=== PATIENT | female | born 1960 | race Caucasian/White ===

== ENCOUNTER → 2020-03-10 | Outpatient (CLI) | payer OTHER ==
[2017-04-21 10:15] VITALS: BP 206/121
[~2020-03-10] MED LIST: ALBUTEROL; AMLO-186 PO; AMLO-187 PO; ARIP5TAB13 PO; ATEN1TAB4 PO; ATOR40TA59 PO; BUPR150T21 PO; CARV12.511 PO; CITA10TA4 PO; CITA20TA6 PO; CLON0.1T PO; CLON0.3T TD; CLONAZEPAM1 MG PO; CLOP75TA PO; CLOP75TA57 PO; DOXE50CA PO; ESCITALOPRAM OX20 MG PO; GABA-585 PO; GABA800T5 PO; GLIM1TAB7 PO; HYDR-3164 PO; HYDR12.58 PO; IBUP-1060 PO; LISI1TAB20 PO; LOVA20TA2 PO; METO-269 PO; OXYC5CAP PO; PANT20TA2 PO; SULF1TAB24 PO; TEMA7.5C2 PO; TIZA4TAB2 PO; TRAM100C3 PO
--- NOTE | 2020-03-10 18:51 | RAD ---
PROCEDURE: XR THORACIC SPINE 3VIEWS, XR LUMBAR SPINE 2-3V STUDY DATE: 03/10/2020 CLINICAL INDICATION / HISTORY: Reason: ACUTE BILATERAL LOW BACK PAIN WITHOUT SCIATICA. / Spl. Instruc tions: / History: . TECHNIQUE: AP lateral and coned-down lateral views of the lumbar spine were obtained COMPARISON: None FINDINGS: Five lumbar segments are identified. There is very subtle rightward convexity scoliotic cur vature of the lumbar spine apex at L2-L3. Otherwise the lumbar vertebral bodies are normal in height and alignment. Disc height is maintained. Pedicles are intact. IMPRESSION: No fracture seen. PROCEDURE: XR THORACIC SPINE 3VIEWS, XR LUMBAR SPINE 2-3V STUDY DATE: 03/10/2020 CLINICAL INDICATION / HISTORY: Reason: ACUTE BILATERAL LOW BACK PAIN WITHOUT SCIATICA. / Spl. Instruc tions: / History: . TECHNIQUE: Thoracic spine was examined in the AP lateral and swimmers projections. COMPARISON: L-spine x-rays same day FINDINGS: The osseous structures are demineralized. There is very subtle leftward convexity scoliotic curvature in the upper thoracic spine at approximately T4-T5.. There is a normal thoracic kyphosis w ith otherwise normal alignment of the thoracic vertebral bodies. There is preservation of the vertebr al body heights as well as the intervertebral disk space heights throughout the thoracic spine. No ev idence of acute fracture or subluxation is identified. 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 No acute or aggressive appearing osseous lesions are identified. More detailed assessment by CT or MRI could be pursued if warranted. Electronically signed by: Bernardo Ryan MD (03/10/2020 6:49 PM) [id number]
== END ==
LOC: RAD 11:37 → MERGE 11:37
PROVIDERS: ATTEND Family Medicine
DX: M43.8X4 Other specified deforming dorsopathies, thoracic region (principal); M40.294 Other kyphosis, thoracic region; M54.5 Low back pain
CPT/HCPCS: 72072; 72100

== ENCOUNTER → 2020-04-29 | Day surgery (SDC) | payer OTHER ==
[~2020-04-29] MED LIST changes: -ALBUTEROL; -ARIP5TAB13 PO; -CARV12.511 PO; -CLON0.1T PO; -ESCITALOPRAM OX20 MG PO; -GABA-585 PO; -HYDR-3164 PO; -HYDR12.58 PO; -IBUP-1060 PO; +IV RINGERS,LACTATED 1000ML 1,000 ML IV SCH; +PROPOFOL 10 MG/ML (20ML) VIAL. IV ONE; -SULF1TAB24 PO
[2020-04-29 10:03] VITALS: BP 167/83
--- NOTE | 2020-04-29 10:11 | CONS ---
DATE OF CONSULTATION: 04/29/2020 GI CONSULTATION REFERRING PHYSICIAN: Koby Pulido MD REASON FOR CONSULTATION: Colonoscopy with history of a carcinoid tumor and history of colonic polyps. HISTORY OF PRESENT ILLNESS: A 59-year-old female whose past medical history is significant for CVAs, hyperlipidemia, hypertension, diabetes, who is status post appendectomy, tubal ligation, and colon resection for carcinoid tumor, seen for interval colonoscopy. Last colonoscopy done approximately 10 years ago, which did reveal polyps; had intermittent bleeding since. No change in bowel habits with diarrhea or constipation. Weight and appetite are stable. She is otherwise without additional complaints. Her family history is unrevealing. PAST MEDICAL HISTORY: Hypertension, hyperlipidemia, history of CVA, history of diabetes, history of GERD. ALLERGIES: LATEX. MEDICATIONS: Include amlodipine, atenolol, chlorthalidone, atorvastatin, citalopram, clonidine, Plavix, doxepin, gabapentin, glimepiride, pantoprazole, tizanidine and tramadol. SOCIAL HISTORY: She is an ex-smoker, nondrinker. FAMILY HISTORY: Noncontributory. PAST SURGICAL HISTORY: Status post appendectomy, carcinoid resection, tubal ligation. REVIEW OF SYSTEMS: HEENT: There is no decrease in her visual acuity issues. CARDIAC: History of hypertension. NEUROLOGIC: History of CVA. ENDOCRINE: History of hyperlipidemia and diabetes. MUSCULOSKELETAL: History of osteoarthrosis. GASTROINTESTINAL: See history of present illness. HEMATOLOGIC: No bleeding, bruising, coagulopathy. DERMATOLOGIC: No skin rashes or pruritus. MUSCULOSKELETAL: History of osteoarthrosis. PHYSICAL EXAMINATION: GENERAL: Reveals a well-nourished, well-developed female. VITAL SIGNS: Temp is 97.4, pulse 69, respiratory rate is 20. HEENT: Normocephalic, atraumatic head. Pupils and extraocular movements are not tested. Sclerae anicteric. NECK: Supple. LUNGS: Clear. CARDIOVASCULAR: Reveals an S1, S2 without S3, S4 or appreciable murmur. ABDOMEN: With a soft abdomen, normal bowel sounds, without appreciable hepatosplenomegaly. Multiple surgical incisions. EXTREMITIES: No cyanosis, clubbing or edema. IMPRESSION: Carcinoid tumor with history of colonic polyps. Surveillance exam is recommended at this time. Risks and benefits of procedure, including risk of hemorrhage and perforation were discussed. The patient is willing to proceed. I would like to thank Dr. Koby Pulido for allowing us to consult and participate in the patient's care. UTCKER IVAN MD DR: TIP/ti JOB#: [id number] / [id number] KOBY Brown MD
== END | disposition home or self-care (01) ==
LOC: SURG 08:04
PROVIDERS: ATTEND Internal Medicine Gastroenterology
DX: Z12.11 Encounter for screening for malignant neoplasm of colon (principal); K64.0 First degree hemorrhoids; K21.9 Gastro-esophageal reflux disease without esophagitis; I10 Essential (primary) hypertension; E11.9 Type 2 diabetes mellitus without complications; E78.00 Pure hypercholesterolemia, unspecified; M19.90 Unspecified osteoarthritis, unspecified site; F41.9 Anxiety disorder, unspecified; F32.9 Major depressive disorder, single episode, unspecified; F17.210 Nicotine dependence, cigarettes, uncomplicated; Z79.899 Other long term (current) drug therapy; Z86.010 Personal history of colon polyps; Z98.890 Other specified postprocedural states; Z90.710 Acquired absence of both cervix and uterus; Z72.89 Other problems related to lifestyle; Z91.040 Latex allergy status
CPT/HCPCS: 45378; J2704

== ENCOUNTER 2020-11-12 11:53 | Emergency (ER) | payer OTHER ==
[~2020-11-12] VITALS: Ht 160 cm; Wt 80.4 kg
[~2020-11-12 11:53] MED LIST changes: +ALBUTEROL; +ARIP5TAB13 PO; +CARV12.511 PO; +CLON0.1T PO; +ESCITALOPRAM OX20 MG PO; +GABA-585 PO; +HYDR-3164 PO; +HYDR12.58 PO; +IBUP-1060 PO; -IV RINGERS,LACTATED 1000ML 1,000 ML IV SCH; -PROPOFOL 10 MG/ML (20ML) VIAL. IV ONE; +SULF1TAB24 PO
[2020-11-12] MEDS ORDERED: IV NORMAL SALINE 1000ML BAG 1,000 ML IV ONE (12:15)
--- NOTE | 2020-11-12 12:15 | PHYS DOC ---
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,BREAST CA,FALLS Past Surgical History: Appendectomy, Colectomy, Other Additional Past Surgical Histo: right foot surgery, cyst removal Smoking Status: Current Every Day Smoker Alcohol Use: None Drug Use: Marijuana General Adult EDM: Chief Complaint: WEAKNESS/GENERALIZED HPI: HPI: Patient is a 60 year old female with a history of diabetes type 2, hypertension, bipolar, multiple strokes, right breast cancer with radiation treatment to the breast completed 3 weeks ago and lymph node removal from the right axilla who presents to the ED today complaining of dizziness that began this morning while doing physical therapy. Patient states symptoms were worse when she was up. Patient also reports nausea but no vomiting. She states she was given Zofran and IV fluids by EMS and she feels better. Review of Systems: Review of Systems: Constitutional: Denies fever or chills. [] Eyes: Denies change in visual acuity. [] HENT: Denies nasal congestion or sore throat. [] Respiratory: Denies cough or shortness of breath. [] Cardiovascular: Denies chest pain or edema. [] GI: Reports nausea. Denies abdominal pain,vomiting, bloody stools or diarrhea. [] : Denies dysuria. [] Musculoskeletal: Denies back pain or joint pain. [] Integument: Denies rash. [] Neurologic: Reports dizziness denies headache, focal weakness or sensory changes. [] Endocrine: Denies polyuria or polydipsia. [] Lymphatic: Denies swollen glands. [] Psychiatric: Denies depression or anxiety. [] Heart Score: C/O Chest Pain: N/A Risk Factors: Risk Factors: DM, Current or recent (<one month) smoker, HTN, HLP, family history of CAD, obesity. Risk Scores: Score 0 - 3: 2.5% MACE over next 6 weeks - Discharge Home Score 4 - 6: 20.3% MACE over next 6 weeks - Admit for Clinical Observation Score 7 - 10: 72.7% MACE over next 6 weeks - Early Invasive Strategies Current Medications: Current Medications Medications (Trade) Dose Ordered Sig/Mario Start Time Stop Time Status Last Admin Dose Admin Meclizine HCl (Antivert) 12.5 mg 1X ONCE 11/12/20 12:15 11/12/20 12:16 UNV Sodium Chloride 1,000 ml @ 1,000 mls/hr 1X ONCE 11/12/20 12:15 11/12/20 13:14 Allergies: Allergies: Allergies Coded Allergies Type Severity Reaction Last Updated Verified latex Allergy Intermediate 04/29/20 Yes Physical Exam: PE: Constitutional: Well developed, well nourished, no acute distress, non-toxic appearance. [] HENT: Normocephalic, atraumatic, bilateral external ears normal, oropharynx moist, no oral exudates, nose normal. [] Eyes: PERRLA, EOMI, conjunctiva normal, no discharge. [] Neck: Normal range of motion, no tenderness, supple, no stridor. [] Cardiovascular:Heart rate regular rhythm, no murmur [] Lungs & Thorax: Bilateral breath sounds clear to auscultation [] Abdomen: Bowel sounds normal, soft, no tenderness, no masses, no pulsatile masses. [] Skin: Warm, dry, no erythema, no rash. [] Back: No tenderness, no CVA tenderness. [] Extremities: No tenderness, no cyanosis, no clubbing, ROM intact, no edema. [] Neurologic: Alert and oriented X 3, normal motor function, normal sensory function, no focal deficits noted. Cranial nerves II through XII intact Psychologic: Affect normal, judgement normal, mood normal. [] EKG: EK interpreted by Dr. Rodriguez sinus rhythm heart rate 57 no STEMI [] Radiology/Procedures: Radiology/Procedures: []PROCEDURE: CT HEAD WO CONTRAST EXAM: Head CT without contrast. HISTORY: Dizziness. TECHNIQUE: Computed tomographic images of the head were obtained without contrast. *One or more of the following individualized dose reduction techniques were utilized for this examination: 1. Automated exposure control. 2. Adjustment of the mA and/or kV according to patient size. 3. Use of iterative reconstruction technique. COMPARISON: 06/30/2020. FINDINGS: There is no acute or subacute extra-axial or intraparenchymal hemorrhage. There is no mass effect or midline shift. There is no hydrocephalus. There are chronic lacunar infarct within the left basal ganglia and right thalamus. There may also be a small chronic infarct within the marifer. There are areas of decreased attenuation within the cerebral white matter due to chronic small vessel disease. There is cerebral volume loss. The visualized portions of the orbits, paranasal sinuses and mastoid air cells are unremarkable. No suspicious calvarial lesion is seen. IMPRESSION: 1. No acute intracranial finding. MRI is more sensitive for acute infarction. 2. Bilateral cerebral white matter changes, likely due to chronic small vessel disease. 3. Suspected chronic lacunar infarct within the left basal ganglia, right thalamus and possibly the marifer. Electronically signed by: Sapna Bah MD (11/12/2020 12:55 PM) [id number] DICTATED and SIGNED BY: SAPNA BAH MD DATE: 11/12/20 [id number] 0 PROCEDURE: PORTABLE CHEST 1V Single view of the chest. 11/12/2020 12:16 PM Indication: Reason: dizziness / Spl. Instructions: / History: Comparison: Chest radiograph April 16, 2015 Findings: There is no focal consolidation. There is no pleural effusion or pneumothorax. Heart size is top normal given portable technique.. No acute osseous abnormalities are seen. Calcified granuloma in the right upper lung is stable. Impression: No evidence of acute cardiopulmonary process. Electronically signed by: Moises Espinoza MD (11/12/2020 12:32 PM) [id number] DICTATED and SIGNED BY: MOISES ESPINOZA MD DATE: 11/12/20 [id number] 0 Course & Med Decision Making: Course & Med Decision Making Pertinent Labs and Imaging studies reviewed. (See chart for details) This is a 60-year-old female patient presenting to the ED today with dizziness and nausea, symptoms began this morning during physical therapy. She was in the ED stating she was feeling better. Vitals on arrival to the ED temperature 98.4, heart rate 58, respiration 18 on room air, O2 sats 94%, blood pressure 104/56. CT of the head is negative for any acute findings, chest x-ray is negative. CBC with no acute findings, CMP with creatinine of 1.4, normal BUN glucose of 299, Given IV fluids in the ED and regular insulin. UA positive for UTI. Started on cephalexin. Patient is currently up and ablating in the ED with a walker which is her baseline comfortably with no difficulties. She states she feels she is back to her baseline and would like to go home. She has a PCP. Instructed to follow-up in the course of this week. Instructed to push fluids. Provided return precautions. Dragon Disclaimer: John Disclaimer: This electronic medical record was generated, in whole or in part, using a voice recognition dictation system. Departure Departure Impression: Primary Impression: Hyperglycemia Additional Impressions: Dizziness Urinary tract infection Qualified Codes: N39.0 - Urinary tract infection, site not specified Disposition: HOME / SELF CARE / HOMELESS Condition: STABLE Referrals: YOLANDA PLATT MD (PCP) Follow-up in the course of this week or next week Patient Instructions: Dizziness, [id number], Hyperglycemia, Urinary Tract Infection Additional Instructions: You were evaluated in the emergency room for dizziness. You are noted to have urinary tract infection. We will send you antibiotics to your pharmacy. Take it as prescribed until completed. Your blood glucose is running high please ensure you are taking your diabetes medicines. Push fluids. Change positions slowly. Take meclizine as needed for dizziness. Follow-up with your doctor in the course of this week or next week. Come back to the ED at any point symptoms worsen Scripts Ondansetron (ONDANSETRON ODT) 4 Mg Tab.rapdis 1 TAB PO PRN Q6-8HRS, #16 TAB Prov: ALAN BLAIR [employer]ER[employer] REPRESENTATIVE 11/12/20 Cephalexin (CEPHALEXIN) 500 Mg Tablet 1 TAB PO BID, #14 TAB Prov: ALAN BLAIR [employer]ER[employer] REPRESENTATIVE 11/12/20 Meclizine Hcl (MECLIZINE HCL) 12.5 Mg Tablet 1 TAB PO TID, #30 TAB Prov: ALAN BLAIR APRN 11/12/20 ALAN BLAIR APRN Nov 12, 2020 12:15
[2020-11-12 12:24] LABS: BASO # 0.1 x10^3/uL (0.0-0.2); BASO % 1 % (0-3); EOS # 0.1 x10^3/uL (0.0-0.7); EOS % 1 % (0-3); HEMATOCRIT 37.7 % (36.0-47.0); LYMPH # 1.4 x10^3/uL (1.0-4.8); LYMPH % 24 % (24-48); MEAN CORPUSCULAR HEMOGLOBIN 30 pg (25-35); MEAN CORPUSCULAR HGB CONC 35 g/dL (31-37); MEAN CORPUSCULAR VOLUME 86 fL (79-100); MONO # 0.4 x10^3/uL (0.0-1.1); MONO % 7 % (0-9); NEUT # 3.9 x10^3/uL (1.8-7.7); NEUT % 68 % (31-73); PLATELET COUNT 227 x10^3/uL (140-400); RED BLOOD COUNT 4.39 x10^6/uL (3.50-5.40); RED CELL DISTRIBUTION WIDTH 13.6 % (11.5-14.5); WHITE BLOOD COUNT 5.7 x10^3/uL (4.0-11.0)
--- NOTE | 2020-11-12 12:34 | RAD ---
Single view of the chest. 11/12/2020 12:16 PM Indication: Reason: dizziness / Spl. Instructions: / History: Comparison: Chest radiograph April 16, 2015 Findings: There is no focal consolidation. There is no pleural effusion or pneumothorax. Heart size i s top normal given portable technique.. No acute osseous abnormalities are seen. Calcified granuloma in the right upper lung is stable. Impression: No evidence of acute cardiopulmonary process. Electronically signed by: Moises Hilton MD (11/12/2020 12:32 PM) [id number]
[2020-11-12 12:36] LABS: CALCIUM 9.2 mg/dL (8.5-10.1); CREATININE 1.4 mg/dL (0.6-1.0); GFR 38.4; POTASSIUM 3.8 mmol/L (3.5-5.1)
[2020-11-12 12:42] LABS: ALBUMIN 3.2 g/dL (3.4-5.0); ALBUMIN/GLOBULIN RATIO 0.9 (1.0-1.7); MAGNESIUM 2.1 mg/dL (1.8-2.4); TOTAL BILIRUBIN 0.3 mg/dL (0.2-1.0); TOTAL PROTEIN 6.8 g/dL (6.4-8.2)
[2020-11-12] MEDS ORDERED: MECLIZINE HCL 12.5 MG TABLET. PO ONE (12:45)
--- NOTE | 2020-11-12 12:57 | RAD ---
EXAM: Head CT without contrast. HISTORY: Dizziness. TECHNIQUE: Computed tomographic images of the head were obtained without contrast. *One or more of the following individualized dose reduction techniques were utilized for this examina tion: 1. Automated exposure control. 2. Adjustment of the mA and/or kV according to patient size. 3. Use of iterative reconstruction technique. COMPARISON: 06/30/2020. FINDINGS: There is no acute or subacute extra-axial or intraparenchymal hemorrhage. There is no mass effect or midline shift. There is no hydrocephalus. There are chronic lacunar infarct within the left basal ganglia and right thalamus. There may also be a small chronic infarct within the marifer. There are areas of decreased attenuation within the cerebra l white matter due to chronic small vessel disease. There is cerebral volume loss. The visualized portions of the orbits, paranasal sinuses and mastoid air cells are unremarkable. No s uspicious calvarial lesion is seen. IMPRESSION: 1. No acute intracranial finding. MRI is more sensitive for acute infarction. 2. Bilateral cerebral white matter changes, likely due to chronic small vessel disease. 3. Suspected chronic lacunar infarct within the left basal ganglia, right thalamus and possibly the p ons. Electronically signed by: Sapna Mckeon MD (11/12/2020 12:55 PM) [id number]
[2020-11-12 14:18] LABS: BILIRUBIN,URINE SMALL (NEG); CLARITY,URINE CLEAR; COLOR,URINE YELLOW; NITRITE,URINE POSITIVE (NEG); PROTEIN,URINE 30 mg/dL (NEG-TRACE); UROBILINOGEN,URINE 0.2 mg/dL (0.2 mg/dL)
[2020-11-12 14:24] LABS: AMPHETAMINE/METHAMPHETAMINE NEG (NEG); BARBITURATES NEG (NEG); BENZODIAZEPINES NEG (NEG); CANNABINOIDS NEG (NEG); COCAINE POS (NEG); METHADONE NEG (NEG); OPIATES NEG (NEG); PHENCYCLIDINE NEG (NEG)
[2020-11-12 14:25] VITALS: BP 108/57
[2020-11-12 14:25] LABS: HYALINE CASTS, URINE MANY /HPF
[2020-11-12 14:26] LABS: BACTERIA,URINE MANY /HPF (0-FEW); RBC,URINE 0 /HPF (0-2); WBC,URINE 20-40 /HPF (0-4)
[2020-11-12] MEDS ORDERED: CEPH500T PO (14:51)
[2020-11-12] MEDS ORDERED: ONDA4TAB12 PO (14:51)
[2020-11-12] MEDS ORDERED: MECL12.582 PO (14:51)
[2020-11-12] MEDS ORDERED: INSULIN REGULAR 100 UNIT/ML 3ML VIAL. IV ONE (15:00)
== END 2020-11-12 15:15 | disposition home or self-care (01) ==
LOC: ER 11:53
DX: N39.0 Urinary tract infection, site not specified (principal); E11.65 Type 2 diabetes mellitus with hyperglycemia; R42 Dizziness and giddiness; F31.9 Bipolar disorder, unspecified; I10 Essential (primary) hypertension; F17.200 Nicotine dependence, unspecified, uncomplicated; Z86.73 Personal history of transient ischemic attack (TIA), and cerebral infarction without residual deficits; Z90.49 Acquired absence of other specified parts of digestive tract; Z90.89 Acquired absence of other organs; Z91.040 Latex allergy status
CPT/HCPCS: 36415; 70450; 71045; 80053; 80307; 81001; 83735; 83880; 84443; 84484; 85025; 87077; 87086; 87186; 93005; 96361; 96374; 99285; J1815; J7030

== ENCOUNTER 2020-11-17 10:08 | Inpatient (IN) | payer OTHER ==
[~2020-11-17] VITALS: Ht 170.2 cm; Wt 77.6 kg
[~2020-11-17 10:08] MED LIST changes: +CEPH500T PO; +MECL12.582 PO; +ONDA4TAB12 PO
[2020-11-17] MEDS ORDERED: IV NORMAL SALINE 1000ML BAG 1,000 ML IV ONE (10:45)
[2020-11-17] MEDS ORDERED: MORPHINE SULFATE 4 MG/ML INJ. IVP ONE ×2 (10:45→13:30)
[2020-11-17] MEDS ORDERED: ONDANSETRON PF 4 MG/2 ML VIAL. IVP ONE (10:45)
[2020-11-17 11:28] LABS: BASO # 0.1 x10^3/uL (0.0-0.2); BASO % 1 % (0-3); EOS % 0 % (0-3); HEMATOCRIT 41.8 % (36.0-47.0); HEMOGLOBIN 14.5 g/dL (12.0-15.5); LYMPH # 1.4 x10^3/uL (1.0-4.8); LYMPH % 11 % (24-48); MEAN CORPUSCULAR HEMOGLOBIN 30 pg (25-35); MEAN CORPUSCULAR HGB CONC 35 g/dL (31-37); MEAN CORPUSCULAR VOLUME 85 fL (79-100); MONO # 0.7 x10^3/uL (0.0-1.1); MONO % 6 % (0-9); NEUT # 10.2 x10^3/uL (1.8-7.7); NEUT % 83 % (31-73); PLATELET COUNT 265 x10^3/uL (140-400); RED BLOOD COUNT 4.91 x10^6/uL (3.50-5.40); RED CELL DISTRIBUTION WIDTH 13.1 % (11.5-14.5); WHITE BLOOD COUNT 12.4 x10^3/uL (4.0-11.0)
[2020-11-17 11:30] LABS: BILIRUBIN,URINE SMALL (NEG); CLARITY,URINE CLEAR; COLOR,URINE AMBER; NITRITE,URINE NEGATIVE (NEG); PH,URINE 5.5 (<5.0-8.0); PROTEIN,URINE 100 mg/dL (NEG-TRACE)
[2020-11-17 11:37] LABS: CALCIUM 9.3 mg/dL (8.5-10.1); CREATININE 1.4 mg/dL (0.6-1.0); GFR 38.4; POTASSIUM 3.6 mmol/L (3.5-5.1)
--- NOTE | 2020-11-17 11:38 | PHYS DOC ---
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 Patient described the pain as sharp aching in nature, patient has history of kidney stones in the past, the pain is similar to her kidney stone attack previously. Patient denies any cough or fever, no chest pain, no shortness of air. Patient says she had kidney stones in the past, she had lithotripsy done. Patient also recently had breast surgery recently in July. Patient does have multiple abdominal surgery in the past due to carcinoid tumor, bowel obstruction. Review of Systems: Review of Systems: Constitutional: Denies fever or chills. [] Eyes: Denies change in visual acuity. [] HENT: Denies nasal congestion or sore throat. [] Respiratory: Denies cough or shortness of breath. [] Cardiovascular: Denies chest pain or edema. [] GI: Positive for left flank pain with nausea, no vomiting, no diarrhea. : Denies dysuria. [] Musculoskeletal: Denies back pain or joint pain. [] Integument: Denies rash. [] Neurologic: Denies headache, focal weakness or sensory changes. [] Endocrine: Denies polyuria or polydipsia. [] Lymphatic: Denies swollen glands. [] Psychiatric: Denies depression or anxiety. [] Heart Score: C/O Chest Pain: N/A Risk Factors: Risk Factors: DM, Current or recent (<one month) smoker, HTN, HLP, family history of CAD, obesity. Risk Scores: Score 0 - 3: 2.5% MACE over next 6 weeks - Discharge Home Score 4 - 6: 20.3% MACE over next 6 weeks - Admit for Clinical Observation Score 7 - 10: 72.7% MACE over next 6 weeks - Early Invasive Strategies Current Medications: Current Medications Medications (Trade) Dose Ordered Sig/Mario Start Time Stop Time Status Last Admin Dose Admin Morphine Sulfate (Morphine Sulfate) 4 mg 1X ONCE 11/17/20 10:45 11/17/20 10:46 DC 11/17/20 11:28 4 MG Ondansetron HCl (Zofran) 4 mg 1X ONCE 11/17/20 10:45 11/17/20 10:46 DC 11/17/20 11:27 4 MG Sodium Chloride 1,000 ml @ 1,000 mls/hr 1X ONCE 11/17/20 10:45 11/17/20 11:44 11/17/20 11:28 1,000 MLS/HR Allergies: Allergies: Allergies Coded Allergies Type Severity Reaction Last Updated Verified latex Allergy Intermediate 04/29/20 Yes Physical Exam: PE: Constitutional: Well developed, well nourished, no acute distress, non-toxic appearance. [] HENT: Normocephalic, atraumatic, bilateral external ears normal, oropharynx mois t, no oral exudates, nose normal. [] Eyes: PERRLA, EOMI, conjunctiva normal, no discharge. [] Neck: Normal range of motion, no tenderness, supple, no stridor. [] Cardiovascular:Heart rate regular rhythm, no murmur [] Lungs & Thorax: Bilateral breath sounds clear to auscultation [] Abdomen: Hypoactive bowel sounds, mildly distended ,left CVA tenderness to palpation. Skin: Warm, dry, no erythema, no rash. [] Back: No tenderness, left CVA tenderness to palpation Extremities: No tenderness, no cyanosis, no clubbing, ROM intact, no edema. [] Neurologic: Alert and oriented X 3, normal motor function, normal sensory function, no focal deficits noted. [] Psychologic: Affect normal, judgement normal, mood normal. [] Current Patient Data: Labs: Laboratory Tests Test 11/17/20 11:10 White Blood Count 12.4 x10^3/uL (4.0-11.0) H Red Blood Count 4.91 x10^6/uL (3.50-5.40) Hemoglobin 14.5 g/dL (12.0-15.5) Hematocrit 41.8 % (36.0-47.0) Mean Corpuscular Volume 85 fL (79-100) Mean Corpuscular Hemoglobin 30 pg (25-35) Mean Corpuscular Hemoglobin Concent 35 g/dL (31-37) Red Cell Distribution Width 13.1 % (11.5-14.5) Platelet Count 265 x10^3/uL (140-400) Neutrophils (%) (Auto) 83 % (31-73) H Lymphocytes (%) (Auto) 11 % (24-48) L Monocytes (%) (Auto) 6 % (0-9) Eosinophils (%) (Auto) 0 % (0-3) Basophils (%) (Auto) 1 % (0-3) Neutrophils # (Auto) 10.2 x10^3/uL (1.8-7.7) H Lymphocytes # (Auto) 1.4 x10^3/uL (1.0-4.8) Monocytes # (Auto) 0.7 x10^3/uL (0.0-1.1) Eosinophils # (Auto) 0.0 x10^3/uL (0.0-0.7) Basophils # (Auto) 0.1 x10^3/uL (0.0-0.2) Laboratory Tests 11/17/20 11:10 Vital Signs: Vital Signs Date Time Temp Pulse Resp B/P (MAP) Pulse Ox O2 Delivery O2 Flow Rate FiO2 11/17/20 11:28 16 94 Room Air 11/17/20 10:34 98.9 93 195/108 (137) 98.9 EKG: EKG: [] Radiology/Procedures: Radiology/Procedures: [][facility] [address] [place] [address] IMAGING REPORT Signed PATIENT: MONTSERRAT RICKETTS ACCOUNT: [id number] : 1960 LOCATION: ER AGE: 60 SEX: F EXAM STATUS: REG ER ORD. PHYSICIAN: JOHN PAUL DUBON DO REASON: left flank pain PROCEDURE: CT ABDOMEN PELVIS WO CONTRAST CT ABDOMEN+PELVIS WO History: Left flank pain. Comparison: CT abdomen and pelvis 06/30/2020. Technique: Noncontrast CT of the abdomen and pelvis. Findings: Dependent changes in the lung bases. Pleural or pericardial effusion. Hypodensity of the liver compatible steatosis. Left hepatic lobe 2.6 cm cyst. Punctate calcification at the gallbladder wall similar to comparison may repres ent adherent mural stone versus calcification in the adjacent hepatic gallbladder fossa. The pancreas is unremarkable. Innumerable calcifications in the spleen consistent with granulomatous disease. Redemonstrated left adrenal adenoma measuring approximately 1.7 cm. Left renal 1.3 cm cyst. Numerous nonobstructing right renal calculi. A few tiny nonobstructing left renal calculi. Decompressed bladder is unremarkable. Uterus and adnexa are within normal limits. The stomach is unremarkable. There is progressive dilation of left mid abdominal small bowel loops with some fecalization of the content and a transition point in the midline pelvis where there is a linear wire shaped metallic foreign body, approximately 2.8 cm in length within the small bowel loops (axial image 170- 174). Distally, the small bowel is decompressed. There is a small bowel anastomosis in the right midabdomen. Appendix is nonvisualized. There is sigmoid diverticulosis without focal wall thickening. Small pelvic free fluid. No free air. Atherosclerotic calcification of the aorta and iliac arteries without aneurysm. No abdominopelvic adenopathy. There is a fat-containing supraumbilical midline ventral hernia. No acute osseous abnormality. Impression: 1. Linear wire shaped metallic foreign body in the small bowel in the midline lower pelvis causing obstruction and fecalization of the proximal small bowel lo ops. Small pelvic free fluid. No free air or abscess identified. Recommend surgery consultation. 2. Hepatic steatosis. 3. Nonobstructing bilateral nephrolithiasis. 4. Sigmoid diverticulosis without evidence for diverticulitis. Findings discussed with Dr. Dubon at 11/17/2020 12:58 PM. FOR INTERNAL CODING PURPOSES RESULT CODE: (C) ------ Exposure: One or more of the following individualized dose reduction techniques were utilized for this examination: 1. Automated exposure control 2. Adjustment of the mA and/or kV according to patient size 3. Use of iterative reconstruction technique. Electronically signed by: Joey Huston MD (11/17/2020 1:00 PM) [id number] DICTATED and SIGNED BY: JOEY HUSTON MD DATE: 11/17/20 [id number] 0 Course & Med Decision Making: Course & Med Decision Making Pertinent Labs and Imaging studies reviewed. (See chart for details) Patient is a 60-year-old female who present to ER due to abdominal pain with nausea vomiting since yesterday. CT scan abdomen pelvis evidence of small bowel obstruction, discussed with her surgeon on-call Dr. Trey Langford who will see patient as a consultation in the hospital., He recommended to admit the patient to family physician. John Disclaimer: John Disclaimer: This electronic medical record was generated, in whole or in part, using a voice recognition dictation system. Departure Departure Impression: Primary Impression: Small bowel obstruction Additional Impression: Abdominal pain Disposition: ADMITTED INPATIENT Admitting Physician: Og Leavitt Condition: STABLE Referrals: KOBY CORRAL MD (PCP) JOHN PAUL DUBON DO Nov 17, 2020 11:38
[2020-11-17 11:43] LABS: ALBUMIN 3.5 g/dL (3.4-5.0); ALBUMIN/GLOBULIN RATIO 0.8 (1.0-1.7); TOTAL BILIRUBIN 0.5 mg/dL (0.2-1.0); TOTAL PROTEIN 8.1 g/dL (6.4-8.2)
[2020-11-17] MEDS ORDERED: KETOROLAC 30 MG/ML VIAL. IVP ONE (12:00)
[2020-11-17 12:08] LABS: BACTERIA,URINE 0 /HPF (0-FEW); HYALINE CASTS, URINE MANY /HPF; RBC,URINE OCC /HPF (0-2); WBC,URINE RARE /HPF (0-4)
--- NOTE | 2020-11-17 13:02 | RAD ---
CT ABDOMEN+PELVIS WO History: Left flank pain. Comparison: CT abdomen and pelvis 06/30/2020. Technique: Noncontrast CT of the abdomen and pelvis. Findings: Dependent changes in the lung bases. Pleural or pericardial effusion. Hypodensity of the liver compatible steatosis. Left hepatic lobe 2.6 cm cyst. Punctate calcification at the gallbladder wall similar to comparison may represent adherent mural stone versus calcification in the adjacent hepatic gallbladder fossa. The pancreas is unremarkable. Innumerable calcifications in the spleen consistent with granulomatous disease. Redemonstrated left adrenal adenoma measuring ap proximately 1.7 cm. Left renal 1.3 cm cyst. Numerous nonobstructing right renal calculi. A few tiny n onobstructing left renal calculi. Decompressed bladder is unremarkable. Uterus and adnexa are within normal limits. The stomach is unremarkable. There is progressive dilation of left mid abdominal small bowel loops wi th some fecalization of the content and a transition point in the midline pelvis where there is a wilfrid ear wire shaped metallic foreign body, approximately 2.8 cm in length within the small bowel loops (a xial image [id number]). Distally, the small bowel is decompressed. There is a small bowel anastomosis in the right midabdomen. Appendix is nonvisualized. There is sigmoid diverticulosis without focal wall thickening. Small pelvic free fluid. No free air. Atherosclerotic calcification of the aorta and iliac arteries w ithout aneurysm. No abdominopelvic adenopathy. There is a fat-containing supraumbilical midline ventr al hernia. No acute osseous abnormality. Impression: 1. Linear wire shaped metallic foreign body in the small bowel in the midline lower pelvis causing o bstruction and fecalization of the proximal small bowel loops. Small pelvic free fluid. No free air o r abscess identified. Recommend surgery consultation. 2. Hepatic steatosis. 3. Nonobstructing bilateral nephrolithiasis. 4. Sigmoid diverticulosis without evidence for diverticulitis. Findings discussed with Dr. Rodriguez at 11/17/2020 12:58 PM. FOR INTERNAL CODING PURPOSES RESULT CODE: (C) ------ Exposure: One or more of the following individualized dose reduction techniques were utilized for thi s examination: 1. Automated exposure control 2. Adjustment of the mA and/or kV according to patient size 3. Use of iterative reconstruction technique. Electronically signed by: Joey Nur MD (11/17/2020 1:00 PM) [id number]
[2020-11-17] MEDS: ONDANSETRON PF 4 MG/2 ML VIAL. IVP PRN ×2 (14:41→22:46)
[2020-11-17] MEDS: MORPHINE SULFATE 4 MG/ML INJ. IVP PRN ×2 (14:41→21:19)
--- NOTE | 2020-11-17 14:41 | PDOC2 ---
SHAHANA MAGDALENO ORTHOPEDIC SHOE FITTER 11/17/20 1441: CONSULT Date of Consult Date of Consult DATE: 11/17/20 TIME: 14:36 Reason for Consult Reason for Consult: SBO Referring Physician Referring Physician: ER Identification/Chief Complaint Chief Complaint abdominal pain Source Source: Chart review, Patient History of Present Illness Reason for Visit: Seen on 11/12 for dizziness. Noted to have UTI. Then started having abdominal pain, went to [facility] ER, nothing done per pt. Last night started having worsening abdominal pain, vomiting. Last stool yesterday. No diarrhea. Significant surgical hx including appendectomy/bowel resection for carcinoid tumor. SBO and required OR for adhesions, unsure if additional resection. She is on plavix for stroke hx. Noted drug screen from 11/12 + for cocaine Past Medical History Cardiovascular: HTN, Hyperlipidemia CENTRAL NERVOUS SYSTEM: CVA Psych: Anxiety Musculoskeletal: Osteoarthritis Endocrine: Other Past Surgical History Past Surgical History: Hysterectomy Family History Family History: Family History Unknown Social History ALCOHOL: occassional Drugs: Cocaine, Marijuana Lives: with Family Current Problem List Problem List Problems Medical Problems: (1) Abdominal pain Status: Acute (2) Small bowel obstruction Status: Acute Current Medications Current Medications Current Medications Ondansetron HCl (Zofran) 4 mg 1X ONCE IVP Last administered on 11/17/20at 11:27; Start 11/17/20 at 10:45; Stop 11/17/20 at 10:46; Status DC Sodium Chloride 1,000 ml @ 1,000 mls/hr 1X ONCE IV Last administered on 11/17/20at 11:28; Start 11/17/20 at 10:45; Stop 11/17/20 at 11:44; Status DC Morphine Sulfate (Morphine Sulfate) 4 mg 1X ONCE IVP Last administered on 11/17/20at 11:28; Start 11/17/20 at 10:45; Stop 11/17/20 at 10:46; Status DC Ketorolac Tromethamine (Toradol 30mg Vial) 30 mg 1X ONCE IVP Last administered on 11/17/20at 12:02; Start 11/17/20 at 12:00; Stop 11/17/20 at 12:01; Status DC Morphine Sulfate (Morphine Sulfate) 4 mg 1X ONCE IVP Last administered on 11/17/20at 13:45; Start 11/17/20 at 13:30; Stop 11/17/20 at 13:33; Status DC Ondansetron HCl (Zofran) 4 mg PRN Q8HRS PRN IVP NAUSEA/VOMITING; Start 11/17/20 at 14:15; Stop 11/18/20 at 14:14 Morphine Sulfate (Morphine Sulfate) 4 mg PRN Q2HR PRN IVP PAIN; Start 11/17/20 at 14:15; Stop 11/18/20 at 14:14 Sodium Chloride 1,000 ml @ 75 mls/hr [id number] IV ; Start 11/17/20 at 14:30; Stop 11/18/20 at 14:29 Metoclopramide HCl (Reglan Vial) 10 mg 1X ONCE IVP ; Start 11/17/20 at 14:30; Stop 11/17/20 at 14:31; Status UNV Active Scripts Active Ondansetron Odt (Ondansetron) 4 Mg Tab.rapdis 1 Tab PO PRN Q6-8HRS Cephalexin 500 Mg Tablet 1 Tab PO BID Meclizine Hcl 12.5 Mg Tablet 1 Tab PO TID Ibuprofen 800 Mg Tablet 800 Mg PO PRN Q6HRS PRN Bactrim Ds Tablet (Sulfamethoxazole/Trimethoprim) 1 Each Tablet 1 Tab PO BID Wilson 5-325 Tablet (Acetaminophen/Hydrocodone Bitart) 1 Each Tablet 1 Tab PO PRN Q6HRS PRN Reported Carvedilol (Carvedilol) 12.5 Mg Tablet 12.5 Mg PO BIDWMEALS Hydrochlorothiazide Tablet (Hydrochlorothiazide) 12.5 Mg Tablet 12.5 Mg PO DAILY Abilify (Aripiprazole) 5 Mg Tablet 1 Tab PO DAILY 30 Days Escitalopram Oxalate 20 Mg Tablet 1 Tab PO DAILY [albuteroll] Clonidine Hcl 0.1 Mg Tablet 0.1 Mg PO BID Gabapentin (Gabapentin) 100 Mg Capsule 200 Mg PO BID Protonix (Pantoprazole Sodium) 20 Mg Tablet.dr 40 Mg PO DAILY Atorvastatin Calcium 40 Mg Tablet 40 Mg PO HS Glimepiride 1 Mg Tablet 1 Mg PO DAILY Plavix (Clopidogrel Bisulfate) 75 Mg Tablet 75 Mg PO DAILY Clopidogrel (Clopidogrel Bisulfate) 75 Mg Tablet 75 Mg PO DAILY Amlodipine Besylate 10 Mg Tablet 10 Mg PO DAILY Doxepin Hcl 50 Mg Capsule 25 Mg PO HS Allergies Allergies: Coded Allergies: latex (Verified Allergy, Intermediate, 04/29/20) ROS General: YES: Fatigue; No: Chills PSYCHOLOGICAL ROS: No: Anxiety, Depression Eyes: No Decreased vision, No Double vision Hematological and Lymphatic: YES: Bleeding Problems; No: Blood Clots Respiratory: No: Cough, Shortness of breath Gastrointestinal: Yes Other (see hpi) Genitourinary: No Dysuria, No Hematuria Musculoskeletal: No Joint Pain, No Muscle Pain Neurological: No Impaired Coord/balance, No Numbness/Tingling Skin: No Pruritus, No Rash Physical Exam General: Alert, Oriented X3, Cooperative HEENT: Atraumatic, PERRLA Lungs: Clear to auscultation, Normal air movement Heart: Regular rate, Normal S1, Normal S2 Abdomen: Soft, Other (mild TTP LLQ, no guarding or peritoneal signs ) Extremities: No clubbing, No cyanosis Skin: No rashes, No breakdown Neuro: Normal gait, Normal speech Psych/Mental Status: Mental status NL, Mood NL MUSCULOSKELETAL: No deformity, No swelling Vitals VITALS Vital Signs Date Time Temp Pulse Resp B/P (MAP) Pulse Ox O2 Delivery O2 Flow Rate FiO2 11/17/20 13:45 14 95 Room Air 11/17/20 13:25 81 148/70 (96) 11/17/20 10:34 98.9 98.9 Labs Labs Laboratory Tests Test 11/17/20 10:39 11/17/20 11:10 Urine Collection Type Unknown Urine Color Sophia Urine Clarity Clear Urine pH 5.5 (<5.0-8.0) Urine Specific [place] >=1.030 (1.000-1.030) Urine Protein 100 mg/dL (NEG-TRACE) Urine Glucose (UA) >=1000 mg/dL (NEG) Urine Ketones (Stick) Negative mg/dL (NEG) Urine Blood Negative (NEG) Urine Nitrite Negative (NEG) Urine Bilirubin Small (NEG) Urine Urobilinogen Dipstick 1.0 mg/dL (0.2 mg/dL) Urine Leukocyte Esterase Negative (NEG) Urine RBC Occ /HPF (0-2) Urine WBC Rare /HPF (0-4) Urine Squamous Epithelial Cells Mod /LPF Urine Bacteria 0 /HPF (0-FEW) Urine Hyaline Casts Many /HPF Urine Mucus Slight /LPF White Blood Count 12.4 x10^3/uL (4.0-11.0) Red Blood Count 4.91 x10^6/uL (3.50-5.40) Hemoglobin 14.5 g/dL (12.0-15.5) Hematocrit 41.8 % (36.0-47.0) Mean Corpuscular Volume 85 fL (79-100) Mean Corpuscular Hemoglobin 30 pg (25-35) Mean Corpuscular Hemoglobin Concent 35 g/dL (31-37) Red Cell Distribution Width 13.1 % (11.5-14.5) Platelet Count 265 x10^3/uL (140-400) Neutrophils (%) (Auto) 83 % (31-73) Lymphocytes (%) (Auto) 11 % (24-48) Monocytes (%) (Auto) 6 % (0-9) Eosinophils (%) (Auto) 0 % (0-3) Basophils (%) (Auto) 1 % (0-3) Neutrophils # (Auto) 10.2 x10^3/uL (1.8-7.7) Lymphocytes # (Auto) 1.4 x10^3/uL (1.0-4.8) Monocytes # (Auto) 0.7 x10^3/uL (0.0-1.1) Eosinophils # (Auto) 0.0 x10^3/uL (0.0-0.7) Basophils # (Auto) 0.1 x10^3/uL (0.0-0.2) Sodium Level 137 mmol/L (136-145) Potassium Level 3.6 mmol/L (3.5-5.1) Chloride Level 99 mmol/L (98-107) Carbon Dioxide Level 25 mmol/L (21-32) Anion Gap 13 (6-14) Blood Urea Nitrogen 18 mg/dL (7-20) Creatinine 1.4 mg/dL (0.6-1.0) Estimated GFR (Cockcroft-Gault) 38.4 BUN/Creatinine Ratio 13 (6-20) Glucose Level 284 mg/dL (70-99) Calcium Level 9.3 mg/dL (8.5-10.1) Total Bilirubin 0.5 mg/dL (0.2-1.0) Aspartate Amino Transf (AST/SGOT) 10 U/L (15-37) Alanine Aminotransferase (ALT/SGPT) 24 U/L (14-59) Alkaline Phosphatase 107 U/L (46-116) Total Protein 8.1 g/dL (6.4-8.2) Albumin 3.5 g/dL (3.4-5.0) Albumin/Globulin Ratio 0.8 (1.0-1.7) Lipase 128 U/L (73-393) Laboratory Tests Test 11/17/20 10:39 11/17/20 11:10 Urine Collection Type Unknown Urine Color Sophia Urine Clarity Clear Urine pH 5.5 (<5.0-8.0) Urine Specific [place] >=1.030 (1.000-1.030) Urine Protein 100 mg/dL (NEG-TRACE) Urine Glucose (UA) >=1000 mg/dL (NEG) Urine Ketones (Stick) Negative mg/dL (NEG) Urine Blood Negative (NEG) Urine Nitrite Negative (NEG) Urine Bilirubin Small (NEG) Urine Urobilinogen Dipstick 1.0 mg/dL (0.2 mg/dL) Urine Leukocyte Esterase Negative (NEG) Urine RBC Occ /HPF (0-2) Urine WBC Rare /HPF (0-4) Urine Squamous Epithelial Cells Mod /LPF Urine Bacteria 0 /HPF (0-FEW) Urine Hyaline Casts Many /HPF Urine Mucus Slight /LPF White Blood Count 12.4 x10^3/uL (4.0-11.0) Red Blood Count 4.91 x10^6/uL (3.50-5.40) Hemoglobin 14.5 g/dL (12.0-15.5) Hematocrit 41.8 % (36.0-47.0) Mean Corpuscular Volume 85 fL (79-100) Mean Corpuscular Hemoglobin 30 pg (25-35) Mean Corpuscular Hemoglobin Concent 35 g/dL (31-37) Red Cell Distribution Width 13.1 % (11.5-14.5) Platelet Count 265 x10^3/uL (140-400) Neutrophils (%) (Auto) 83 % (31-73) Lymphocytes (%) (Auto) 11 % (24-48) Monocytes (%) (Auto) 6 % (0-9) Eosinophils (%) (Auto) 0 % (0-3) Basophils (%) (Auto) 1 % (0-3) Neutrophils # (Auto) 10.2 x10^3/uL (1.8-7.7) Lymphocytes # (Auto) 1.4 x10^3/uL (1.0-4.8) Monocytes # (Auto) 0.7 x10^3/uL (0.0-1.1) Eosinophils # (Auto) 0.0 x10^3/uL (0.0-0.7) Basophils # (Auto) 0.1 x10^3/uL (0.0-0.2) Sodium Level 137 mmol/L (136-145) Potassium Level 3.6 mmol/L (3.5-5.1) Chloride Level 99 mmol/L (98-107) Carbon Dioxide Level 25 mmol/L (21-32) Anion Gap 13 (6-14) Blood Urea Nitrogen 18 mg/dL (7-20) Creatinine 1.4 mg/dL (0.6-1.0) Estimated GFR (Cockcroft-Gault) 38.4 BUN/Creatinine Ratio 13 (6-20) Glucose Level 284 mg/dL (70-99) Calcium Level 9.3 mg/dL (8.5-10.1) Total Bilirubin 0.5 mg/dL (0.2-1.0) Aspartate Amino Transf (AST/SGOT) 10 U/L (15-37) Alanine Aminotransferase (ALT/SGPT) 24 U/L (14-59) Alkaline Phosphatase 107 U/L (46-116) Total Protein 8.1 g/dL (6.4-8.2) Albumin 3.5 g/dL (3.4-5.0) Albumin/Globulin Ratio 0.8 (1.0-1.7) Lipase 128 U/L (73-393) Assessment/Plan Assessment/Plan abd pain, CT concerning for SB FB possibly with obstruction would rec NG tube, decompression and SBFT in AM would hold plavix in event surgery required TUCKER VANCE MD 11/18/20 0838: CONSULT Assessment/Plan Assessment/Plan Plan for SB series SHAHANA MAGDALENO ORTHOPEDIC SHOE FITTER Nov 17, 2020 14:41 TUCKER VANCE MD Nov 18, 2020 08:38
[2020-11-17] MEDS: IV NORMAL SALINE 1000ML BAG 1,000 ML IV SCH ×2 (14:42→21:23)
[2020-11-17] MEDS ORDERED: METOCLOPRAMIDE HCL 10 MG/2 ML VIAL. IVP ONE (15:00)
[2020-11-17 16:21] VITALS: BP 187/101
--- NOTE | 2020-11-17 16:55 | NUR ---
Ski Binding Fitter And Repairer attempted to insert NG tube. The tube was barely in the nare and patient stated "No, No, I can't do this, it hurts too much". Educated patient on importance of NG tube, patient still refused.
[2020-11-17 19:15] VITALS: BP 185/76
[2020-11-17 23:35] VITALS: BP 152/88
[2020-11-18 03:07] VITALS: BP 159/83
[2020-11-18] MEDS: MORPHINE SULFATE 4 MG/ML INJ. IVP PRN ×4 (03:27→12:34)
[2020-11-18] MEDS: ONDANSETRON PF 4 MG/2 ML VIAL. IVP PRN (06:49)
[2020-11-18 07:00] VITALS: BP 149/82
[2020-11-18] MEDS ORDERED: IOHEXOL 300 MG/ML 100ML VIAL. PO ONE (07:00)
[2020-11-18] MEDS ORDERED: CONTRAST GIVEN. MC PRN (07:00)
[2020-11-18] MEDS ORDERED: BARIUM SULFATE 60% 355 ML SUSP PO ONE (07:00)
[2020-11-18] MEDS: IV NORMAL SALINE 1000ML BAG 1,000 ML IV SCH ×2 (08:08→21:53)
--- NOTE | 2020-11-18 10:32 | RAD ---
EXAM: SMALL BOWEL FOLLOW-THROUGH. HISTORY: Small bowel obstruction. COMPARISON: 11/17/2020. FINDINGS: A hydroelectric systems technician image was obtained. Water-soluble contrast material was administered orally and fol lowed in its course through the stomach, small bowel and proximal colon with fluoroscopy and plain ra diographs. 7 fluoroscopic images were obtained. Fluoroscopy time 1.8 minutes. The hydroelectric systems technician image demonstrates a wire-like metallic density in the left lower quadrant, moved laterally from the midline since prior CT. It measures 2.1 cm in length and <1 mm in width. There are mildly d istended small bowel loops in the left abdomen. An anastomotic suture line is noted in the right lowe r quadrant. There is gas distally. Following contrast, there are no distended small bowel loops. No strictures are seen. No clear abnorm ality is appreciated within the bowel loops about the wire-like foreign body. The luminal debris is n oted on CT appear to have cleared. The small bowel fold pattern is unremarkable. Transit time was nor mal at 60 minutes (normal <2 hours.) A small hiatal hernia is noted. IMPRESSION: 1. 2.1 cm wire-like foreign body within or adjacent to small bowel loops in the left lower quadrant, moved laterally since recent CT. There is no clear effect on adjacent bowel loops by this technique, but there was associated obstruction on CT. This appears to resolve. 2. Small hiatal hernia. Electronically signed by: Merlin Jiménez MD (11/18/2020 10:30 AM) [id number]
--- NOTE | 2020-11-18 10:36 | HP ---
ADMIT DATE: 11/17/2020 CHIEF COMPLAINT: Abdominal pain. HISTORY OF PRESENT ILLNESS: The patient was seen at [facility] for left lower quadrant pain and "nothing was done." She came in here and there was evidence of small bowel obstruction, seen and question of a metallic foreign body present in the stomach of unknown etiology. She is downstairs getting small bowel series at this time. PAST MEDICAL HISTORY: Well documented in the old records. MEDICATIONS: As noted and studied. SOCIAL HISTORY: Still a smoker, , retired. FAMILY HISTORY: Unremarkable. REVIEW OF SYSTEMS: No other complaints. OBJECTIVE: Physical exam not available as the patient was in Radiology. ASSESSMENT: Recurrent small bowel obstruction with previous bowel surgery. Apparently, recent urine drug screen showed cocaine. PLAN: We will repeat urine drug screen and test results of small bowel series and surgical need with surgical consultation. WESTLEY/JOHN DR: Josee TID: [id number]
[2020-11-18 11:00] VITALS: BP 113/73
--- NOTE | 2020-11-18 11:34 | PDOC ---
SURGICAL PROGRESS NOTE DATE: 11/18/20 TIME: 11:33 Subjective on commode have stools after SBFT Vital Signs Vital Signs Date Time Temp Pulse Resp B/P (MAP) Pulse Ox O2 Delivery O2 Flow Rate FiO2 11/18/20 11:00 98.1 99 18 113/73 (86) 94 Room Air 98.1 I&O Intake and Output 11/18/20 07:00 Intake Total 2800 ml Balance 2800 ml Intake Oral 0 ml IV Total 1900 ml Other 900 ml # Voids 3 General: Oriented X3, Cooperative Abdomen: Soft Labs Laboratory Tests Test 11/17/20 10:39 11/17/20 11:10 11/17/20 14:00 Urine Collection Type Unknown Urine Color Sophia Urine Clarity Clear Urine pH 5.5 (<5.0-8.0) Urine Specific [place] >=1.030 (1.000-1.030) Urine Protein 100 mg/dL (NEG-TRACE) Urine Glucose (UA) >=1000 mg/dL (NEG) Urine Ketones (Stick) Negative mg/dL (NEG) Urine Blood Negative (NEG) Urine Nitrite Negative (NEG) Urine Bilirubin Small (NEG) Urine Urobilinogen Dipstick 1.0 mg/dL (0.2 mg/dL) Urine Leukocyte Esterase Negative (NEG) Urine RBC Occ /HPF (0-2) Urine WBC Rare /HPF (0-4) Urine Squamous Epithelial Cells Mod /LPF Urine Bacteria 0 /HPF (0-FEW) Urine Hyaline Casts Many /HPF Urine Mucus Slight /LPF White Blood Count 12.4 x10^3/uL (4.0-11.0) Red Blood Count 4.91 x10^6/uL (3.50-5.40) Hemoglobin 14.5 g/dL (12.0-15.5) Hematocrit 41.8 % (36.0-47.0) Mean Corpuscular Volume 85 fL (79-100) Mean Corpuscular Hemoglobin 30 pg (25-35) Mean Corpuscular Hemoglobin Concent 35 g/dL (31-37) Red Cell Distribution Width 13.1 % (11.5-14.5) Platelet Count 265 x10^3/uL (140-400) Neutrophils (%) (Auto) 83 % (31-73) Lymphocytes (%) (Auto) 11 % (24-48) Monocytes (%) (Auto) 6 % (0-9) Eosinophils (%) (Auto) 0 % (0-3) Basophils (%) (Auto) 1 % (0-3) Neutrophils # (Auto) 10.2 x10^3/uL (1.8-7.7) Lymphocytes # (Auto) 1.4 x10^3/uL (1.0-4.8) Monocytes # (Auto) 0.7 x10^3/uL (0.0-1.1) Eosinophils # (Auto) 0.0 x10^3/uL (0.0-0.7) Basophils # (Auto) 0.1 x10^3/uL (0.0-0.2) Sodium Level 137 mmol/L (136-145) Potassium Level 3.6 mmol/L (3.5-5.1) Chloride Level 99 mmol/L (98-107) Carbon Dioxide Level 25 mmol/L (21-32) Anion Gap 13 (6-14) Blood Urea Nitrogen 18 mg/dL (7-20) Creatinine 1.4 mg/dL (0.6-1.0) Estimated GFR (Cockcroft-Gault) 38.4 BUN/Creatinine Ratio 13 (6-20) Glucose Level 284 mg/dL (70-99) Calcium Level 9.3 mg/dL (8.5-10.1) Total Bilirubin 0.5 mg/dL (0.2-1.0) Aspartate Amino Transf (AST/SGOT) 10 U/L (15-37) Alanine Aminotransferase (ALT/SGPT) 24 U/L (14-59) Alkaline Phosphatase 107 U/L (46-116) Total Protein 8.1 g/dL (6.4-8.2) Albumin 3.5 g/dL (3.4-5.0) Albumin/Globulin Ratio 0.8 (1.0-1.7) Lipase 128 U/L (73-393) SARS-CoV-2 RNA (WINNIE) Negative (Negative) SARS-CoV-2 Antigen (Rapid) Negative (NEGATIVE) Laboratory Tests Test 11/17/20 14:00 SARS-CoV-2 RNA (WINNIE) Negative (Negative) SARS-CoV-2 Antigen (Rapid) Negative (NEGATIVE) Problem List Problems Medical Problems: (1) Abdominal pain Status: Acute (2) Small bowel obstruction Status: Acute Assessment/Plan no obstruction, FB appears to be moving start clears Justicifation of Admission Dx: Justifications for Admission: Justification of Admission Dx: Yes Comments: ileus SHAHANA MAGDALENO POLICY OFFICER Nov 18, 2020 11:34
[2020-11-18 12:42] LABS: BARBITURATES NEG (NEG); BENZODIAZEPINES NEG (NEG); CANNABINOIDS NEG (NEG); COCAINE POS (NEG); METHADONE NEG (NEG); OPIATES POS (NEG); PHENCYCLIDINE NEG (NEG)
[2020-11-18 12:50] LABS: AMPHETAMINE/METHAMPHETAMINE NEG (NEG)
[2020-11-18 15:00] VITALS: BP 160/78
[2020-11-18] MEDS: MORPHINE SULFATE 2 MG/ML INJ. IVP PRN ×2 (17:16→21:51)
[2020-11-18 19:12] VITALS: BP 170/80
[2020-11-18] MEDS ORDERED: FAMOTIDINE 20 MG TABLET. PO ONE (19:15)
[2020-11-18 23:09] VITALS: BP 160/87
[2020-11-19 01:34] LABS: HEMOGLOBIN A1C 9.1 % (4.8-5.6)
[2020-11-19 03:04] VITALS: BP 132/59
[2020-11-19] MEDS: MORPHINE SULFATE 2 MG/ML INJ. IVP PRN (03:21)
[2020-11-19 07:00] VITALS: BP 154/75
--- NOTE | 2020-11-19 07:39 | PDOC ---
Provider Note Date of Service: DATE: 11/19/20 TIME: 07:38 Provider Note vss, no temp, denies pain and wants to eat- abd soft, sb series good- a1c 9 noted- will adv diet to fl, more next- discussed cocaine and strokes, she understands- dc morphine also Justifications for Admission Other Justification YOLANDA PLATT MD Nov 19, 2020 07:39
[2020-11-19] MEDS ORDERED: DEXTROSE 50% 25 GM / 50ML DISP.SYRIN. IV PRN (07:45)
[2020-11-19] MEDS: INSULIN LISPRO 300 UNITS/3 ML VIAL. SQ SCH ×3 (08:00→18:38)
[2020-11-19] MEDS: CITALOPRAM 20 MG TABLET. PO SCH (08:54)
[2020-11-19] MEDS: PANTOPRAZOLE 40 MG TABLET.DR. PO SCH (08:54)
[2020-11-19] MEDS: CARVEDILOL 12.5 MG TABLET. PO SCH ×2 (08:55→18:34)
[2020-11-19] MEDS: ARIPiprazole 5 MG TABLET PO SCH (08:55)
[2020-11-19] MEDS: traMADol 50 MG TABLET PO PRN ×2 (08:57→18:34)
[2020-11-19] MEDS ORDERED: FAMOTIDINE 20 MG TABLET. PO SCH (09:00)
--- NOTE | 2020-11-19 09:04 | PDOC ---
SURGICAL PROGRESS NOTE DATE: 11/19/20 TIME: 09:02 Subjective some mild abdominal pain no nausea multiple loose stools Vital Signs Vital Signs Date Time Temp Pulse Resp B/P (MAP) Pulse Ox O2 Delivery O2 Flow Rate FiO2 11/19/20 08:55 62 154/75 11/19/20 07:00 98.9 18 92 Room Air 98.9 I&O Intake and Output 11/19/20 07:00 Intake Total 2000 ml Balance 2000 ml Intake Oral 2000 ml # Voids 12 # Bowel Movements 7 General: Alert, Oriented X3, Cooperative Abdomen: Soft, No tenderness Labs Laboratory Tests Test 11/17/20 10:39 11/17/20 11:10 11/17/20 14:00 11/18/20 11:30 Urine Collection Type Unknown Urine Color Sophia Urine Clarity Clear Urine pH 5.5 (<5.0-8.0) Urine Specific [place] >=1.030 (1.000-1.030) Urine Protein 100 mg/dL (NEG-TRACE) Urine Glucose (UA) >=1000 mg/dL (NEG) Urine Ketones (Stick) Negative mg/dL (NEG) Urine Blood Negative (NEG) Urine Nitrite Negative (NEG) Urine Bilirubin Small (NEG) Urine Urobilinogen Dipstick 1.0 mg/dL (0.2 mg/dL) Urine Leukocyte Esterase Negative (NEG) Urine RBC Occ /HPF (0-2) Urine WBC Rare /HPF (0-4) Urine Squamous Epithelial Cells Mod /LPF Urine Bacteria 0 /HPF (0-FEW) Urine Hyaline Casts Many /HPF Urine Mucus Slight /LPF White Blood Count 12.4 x10^3/uL (4.0-11.0) Red Blood Count 4.91 x10^6/uL (3.50-5.40) Hemoglobin 14.5 g/dL (12.0-15.5) Hematocrit 41.8 % (36.0-47.0) Mean Corpuscular Volume 85 fL (79-100) Mean Corpuscular Hemoglobin 30 pg (25-35) Mean Corpuscular Hemoglobin Concent 35 g/dL (31-37) Red Cell Distribution Width 13.1 % (11.5-14.5) Platelet Count 265 x10^3/uL (140-400) Neutrophils (%) (Auto) 83 % (31-73) Lymphocytes (%) (Auto) 11 % (24-48) Monocytes (%) (Auto) 6 % (0-9) Eosinophils (%) (Auto) 0 % (0-3) Basophils (%) (Auto) 1 % (0-3) Neutrophils # (Auto) 10.2 x10^3/uL (1.8-7.7) Lymphocytes # (Auto) 1.4 x10^3/uL (1.0-4.8) Monocytes # (Auto) 0.7 x10^3/uL (0.0-1.1) Eosinophils # (Auto) 0.0 x10^3/uL (0.0-0.7) Basophils # (Auto) 0.1 x10^3/uL (0.0-0.2) Sodium Level 137 mmol/L (136-145) Potassium Level 3.6 mmol/L (3.5-5.1) Chloride Level 99 mmol/L (98-107) Carbon Dioxide Level 25 mmol/L (21-32) Anion Gap 13 (6-14) Blood Urea Nitrogen 18 mg/dL (7-20) Creatinine 1.4 mg/dL (0.6-1.0) Estimated GFR (Cockcroft-Gault) 38.4 BUN/Creatinine Ratio 13 (6-20) Glucose Level 284 mg/dL (70-99) Hemoglobin A1c 9.1 % (4.8-5.6) Calcium Level 9.3 mg/dL (8.5-10.1) Total Bilirubin 0.5 mg/dL (0.2-1.0) Aspartate Amino Transf (AST/SGOT) 10 U/L (15-37) Alanine Aminotransferase (ALT/SGPT) 24 U/L (14-59) Alkaline Phosphatase 107 U/L (46-116) Total Protein 8.1 g/dL (6.4-8.2) Albumin 3.5 g/dL (3.4-5.0) Albumin/Globulin Ratio 0.8 (1.0-1.7) Lipase 128 U/L (73-393) SARS-CoV-2 RNA (WINNIE) Negative (Negative) SARS-CoV-2 Antigen (Rapid) Negative (NEGATIVE) Urine Opiates Screen Pos (NEG) Urine Methadone Screen Neg (NEG) Urine Barbiturates Neg (NEG) Urine Phencyclidine Screen Neg (NEG) Urine Amphetamine/Methamphetamine Neg (NEG) Urine Benzodiazepines Screen Neg (NEG) Urine Cocaine Screen Pos (NEG) Urine Cannabinoids Screen Neg (NEG) Urine Ethyl Alcohol Neg (NEG) Test 11/19/20 08:53 Glucose (Fingerstick) 226 mg/dL (70-99) Laboratory Tests Test 11/18/20 11:30 11/19/20 08:53 Urine Opiates Screen Pos (NEG) Urine Methadone Screen Neg (NEG) Urine Barbiturates Neg (NEG) Urine Phencyclidine Screen Neg (NEG) Urine Amphetamine/Methamphetamine Neg (NEG) Urine Benzodiazepines Screen Neg (NEG) Urine Cocaine Screen Pos (NEG) Urine Cannabinoids Screen Neg (NEG) Urine Ethyl Alcohol Neg (NEG) Glucose (Fingerstick) 226 mg/dL (70-99) Problem List Problems Medical Problems: (1) Abdominal pain Status: Acute (2) Small bowel obstruction Status: Acute Assessment/Plan diet as tolerated will check XR -ensure FB resolved/continuing to move Justicifation of Admission Dx: Justifications for Admission: Justification of Admission Dx: Yes SHAHANA MAGDALENO SPOOL WORKER Nov 19, 2020 09:04
[2020-11-19 11:00] VITALS: BP 138/68
--- NOTE | 2020-11-19 11:11 | RAD ---
KUB compared to CT scan of the abdomen and pelvis dated 11/17/2020 for foreign body on prior imaging. FINDINGS: There is contrast distributed throughout the colon. This extends to the level the rectum. T here are several air-filled loops of small bowel throughout the left hemiabdomen, with edematous tila ins. In the left hemiabdomen there is a 2.5 cm linear metallic foreign body in close proximation to t hese edematous small bowel loops, which may represent a foreign body previously seen within the midli ne pelvic bowel. No free air on erect imaging. IMPRESSION: 1. Air-filled edematous small bowel loops in the left hemiabdomen, with associated 2.5 cm linear meta llic foreign body, likely representing the abnormality seen in the midline pelvis at CT. No free air. 2. Contrast throughout the colon. Electronically signed by: Gabriel German MD (11/19/2020 11:08 AM) [id number]
[2020-11-19] MEDS: POTASSIUM CL 20MEQ D5-0.45NACL 1,000 ML IV SCH (11:46)
[2020-11-19 15:00] VITALS: BP 146/70
[2020-11-19 19:00] VITALS: BP 92/55
[2020-11-19 23:00] VITALS: BP 140/69
[2020-11-20] MEDS: POTASSIUM CL 20MEQ D5-0.45NACL 1,000 ML IV SCH ×2 (00:52→13:37)
[2020-11-20] MEDS: traMADol 50 MG TABLET PO PRN ×3 (01:45→16:16)
[2020-11-20 03:00] VITALS: BP 124/67
[2020-11-20 07:00] VITALS: BP 118/62
--- NOTE | 2020-11-20 08:58 | PDOC ---
SURGICAL PROGRESS NOTE DATE: 11/20/20 TIME: 08:55 Subjective tolerating diet no pain having stools Vital Signs Vital Signs Date Time Temp Pulse Resp B/P (MAP) Pulse Ox O2 Delivery O2 Flow Rate FiO2 11/20/20 07:00 97.4 65 16 118/62 (80) 93 Room Air 97.4 I&O Intake and Output 11/20/20 07:00 Intake Total 2800 ml Balance 2800 ml Intake Oral 1800 ml IV Total 1000 ml # Voids 8 # Bowel Movements 3 General: Alert, Oriented X3, Cooperative Abdomen: Soft, No tenderness Labs Laboratory Tests Test 11/18/20 11:30 11/19/20 08:53 11/19/20 12:18 11/19/20 15:41 Urine Opiates Screen Pos (NEG) Urine Methadone Screen Neg (NEG) Urine Barbiturates Neg (NEG) Urine Phencyclidine Screen Neg (NEG) Urine Amphetamine/Methamphetamine Neg (NEG) Urine Benzodiazepines Screen Neg (NEG) Urine Cocaine Screen Pos (NEG) Urine Cannabinoids Screen Neg (NEG) Urine Ethyl Alcohol Neg (NEG) Glucose (Fingerstick) 226 mg/dL (70-99) 147 mg/dL (70-99) 157 mg/dL (70-99) Test 11/20/20 07:46 Glucose (Fingerstick) 189 mg/dL (70-99) Laboratory Tests Test 11/19/20 12:18 11/19/20 15:41 11/20/20 07:46 Glucose (Fingerstick) 147 mg/dL (70-99) 157 mg/dL (70-99) 189 mg/dL (70-99) Problem List Problems Medical Problems: (1) Abdominal pain Status: Acute (2) Small bowel obstruction Status: Acute Assessment/Plan no surgical needs, can advance diet as tolerated and DC per primary Justicifation of Admission Dx: Justifications for Admission: Justification of Admission Dx: Yes SHAHANA MAGDALENO [employer] SPECIALIST Nov 20, 2020 08:58
[2020-11-20] MEDS: PANTOPRAZOLE 40 MG TABLET.DR. PO SCH (09:35)
[2020-11-20] MEDS: ARIPiprazole 5 MG TABLET PO SCH (09:35)
[2020-11-20] MEDS: CITALOPRAM 20 MG TABLET. PO SCH (09:36)
[2020-11-20] MEDS: CARVEDILOL 12.5 MG TABLET. PO SCH ×2 (09:37→17:00)
[2020-11-20] MEDS: INSULIN LISPRO 300 UNITS/3 ML VIAL. SQ SCH ×3 (09:41→17:00)
--- NOTE | 2020-11-20 10:27 | NUR ---
SW following. Discussed with RN, pt from home with spouse, room air, full liquid diet. COVID-19 negative. RN advised no SW needs at this time, anticipate discharge in the next day or so. SW will continue to follow.
[2020-11-20 11:00] VITALS: BP 156/64
[2020-11-20 15:00] VITALS: BP 120/70
--- NOTE | 2020-11-20 17:46 | NUR ---
Ok to discharge per Dr. Shelton if pt is handling food well.
--- NOTE | 2020-11-20 18:16 | NUR ---
pt discharged to home with family member. Taken out by wheelchair.
--- NOTE | 2020-11-20 22:02 | PN ---
DATE: 11/20/2020 LOCATION: She is in room #422. SUBJECTIVE: This 60-year-old white female admitted with small-bowel obstruction. She is improving with several stools and stating that her abdomen feels much better. KUB yesterday showed improvement. Surgery is following along. We will advance diet today as tolerated and see how she does. OBJECTIVE: VITAL SIGNS: Stable. She is afebrile. GENERAL: She is awake and alert. CHEST: Clear. HEART: Regular. ABDOMEN: Soft and benign. ASSESSMENT: Small-bowel obstruction, clinically resolving. PLAN: See how she does with diet, with possible discharge later this evening or tomorrow morning. COMFORT DR: Leona TID: [id number]
--- NOTE | 2020-11-23 09:17 | DS ---
DATE OF DISCHARGE: 11/20/2020 PRIMARY DIAGNOSES: Small bowel obstruction, history of previous small bowel surgery, history of cerebrovascular accident, hypertension. CHIEF COMPLAINT AND HISTORY OF PRESENT ILLNESS: This 60-year-old female who presented to the Emergency Room with evaluation of left flank pain. 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 SUMMARY OF STAY: The patient was admitted, followed expectantly. Surgery followed along. She eventually self-resolved, was able to take a regular diet on the day of discharge and dismissed on the evening of the . DISPOSITION: The patient is discharged to home. Please see orders regarding diet, medication, activity, etc. She will follow up with Dr. Leavitt in 1 week. MOON/KASSIDY/JOHN DR: Leona TID: [id number]
== END 2020-11-20 18:15 | disposition home or self-care (01) | DRG 390 ==
LOC: ER 10:08 → 4 NORTH 13:56
PROVIDERS: ADMIT Family Medicine; ATTEND Family Medicine
DX: K56.609 Unspecified intestinal obstruction, unspecified as to partial versus complete obstruction (principal); D3A.00 Benign carcinoid tumor of unspecified site; E78.5 Hyperlipidemia, unspecified; F17.200 Nicotine dependence, unspecified, uncomplicated; I10 Essential (primary) hypertension; K56.7 Ileus, unspecified; K57.30 Diverticulosis of large intestine without perforation or abscess without bleeding; K76.0 Fatty (change of) liver, not elsewhere classified; M19.90 Unspecified osteoarthritis, unspecified site; N20.0 Calculus of kidney; Z86.73 Personal history of transient ischemic attack (TIA), and cerebral infarction without residual deficits; Z87.442 Personal history of urinary calculi; Z90.49 Acquired absence of other specified parts of digestive tract; Z90.710 Acquired absence of both cervix and uterus; F32.A Depression, unspecified; F41.9 Anxiety disorder, unspecified; C50.819 Malignant neoplasm of overlapping sites of unspecified female breast; E16.2 Hypoglycemia, unspecified; F12.90 Cannabis use, unspecified, uncomplicated
CPT/HCPCS: 36415; 74021; 74176; 74250; 80053; 80307; 81001; 82962; 83036; 83690; 85025; 87426; 96361; 96374; 96375; 96376; J1815; J1885; J2270; J2405; J2765; J3480; J7030; Q9967; U0003; U0005; 99285-25; G0378